=== PATIENT | female | born 1950 | race Caucasian/White ===

== ENCOUNTER → 2016-12-21 | Day surgery (SDC) | payer BC ==
--- NOTE | 2016-12-13 16:02 | MH ---
cc: RICK ANDERSON MD DATE OF ADMISSION 12/21/2016 REASON FOR ADMISSION Scheduled for admission on 12/21/1981 for cystocele repair. HISTORY OF THE PRESENT ILLNESS The patient is a 66-year-old white female 2, para 2, para 2 who had last year a total vaginal hysterectomy and extensive pelvic support procedure for uterovaginal prolapse. The repair included vaginal hysterectomy, vaginal vault suspension to uterosacral ligaments, anterior repair, modified posterior repair. She has done well with a good result but noted after some vigorous exercise a month or so ago recurrence of anterior compartment prolapse. Her exam in the office shows good support of the apex but does have stage II pelvic organ prolapse anteriorly. The patient declined pessary use or physical therapy and wanted to proceed to the vaginal repair. PAST MEDICAL HISTORY The patient's past medical history is negative for heart, lung, liver disease, hypertension, diabetes, stroke. PAST SURGICAL HISTORY 1. Hysteroscopy D&C. 2. Total vaginal hysterectomy with apical suspension, anterior and posterior repair. GYNECOLOGIC HISTORY No STDs or abnormal Pap smears. MEDICATIONS None ALLERGIES None SOCIAL HISTORY She does not smoke, use alcohol or drugs. . Has good social support. FAMILY HISTORY Noncontributory OBSTETRICAL HISTORY Two vaginal deliveries. Largest baby 10 pounds. REVIEW OF SYSTEMS As above. No chest pain, orthopnea, PND. No nausea, vomiting, fever, chills. No vaginal bleeding or discharge. Pelvic organ prolapse symptoms are mainly pelvic pressure and discomfort. No urinary incontinence. PHYSICAL EXAMINATION VITAL SIGNS: She is afebrile. Vital signs stable. Height is 5 feet 8, weight 140. BMI is 21.5. Blood pressure 120/70. GENERAL: Patient is alert and oriented in no acute stress. No sign of cognitive dysfunction or depression. HEENT: Within normal limits. NECK: Supple. No JVD. CHEST: Clear. HEART: Regular rate and rhythm. ABDOMEN: Soft and nontender. No hepatosplenomegaly. No CVA tenderness. PELVIC: Examination in the office shows pop Q score Aa is 0, point C is -6, Ap is -3, genital hiatus is 8. Perineal body is 5. Total vaginal length is 10. EXTREMITIES: Normal. SKIN: Without rashes. NEUROLOGIC: Nonfocal. No DVT signs. ASSESSMENT Patient with anterior compartment prolapse following prior stage IV pelvic organ prolapse repair. The patient and I discussed options for management and treatment. She is at increased risk for failure of repair secondary to her prior history of stage IV pelvic organ prolapse. She is also aware that the anterior compartment defects are more likely to result in failure and anterior enterocele. At this point we are going to use DVT prophylaxis with sequential compression device, Ancef for antibiotic prophylaxis. The patient wants to avoid the use of mesh and we will not be using any mesh from a transvaginal approach. She is aware of the risks, benefits and alternatives to the planned procedure including damage to surrounding organs, bleeding, infection, failure of repair, need for catheterization as well as issues regarding the De adan new onset stress incontinence as well as dyspareunia. Patient has made an informed choice to proceed. Anticipate outpatient procedure. Rick Anderson MD CS/KK /3:00 PM /3:50 PM
[~2016-12-21] VITALS: Ht 170.2 cm; Wt 66.5 kg
[~2016-12-21] MED LIST: DO NOT ADM ANY ANTICOAGULANT DRUGS XX PRN; ESTR42.5V VAGINAL; ESTROGENS CONJUGATED VAG CREA 15 APPL/30 GM TUBE ONE; FAMOTIDINE 20 MG/2 ML VIAL ONE; FLUORESCEIN SOD 10% SOLN 500 MG/5 ML AMP ONE; INSULIN HUMAN REGULAR 1,000 UNITS/10 ML VIAL SQ PRN; KETOROLAC TROMETHAMINE 10 MG TAB PO PRN; KETOROLAC TROMETHAMINE 30 MG/ML (IVP) VIAL IV PUSH PRN; KETOROLAC TROMETHAMINE 60 MG/2 ML (IM) VIAL IM ONE; KETOROLAC TROMETHAMINE 60 MG/2 ML (IM) VIAL IM PRN; LACTATED RINGER'S 1000 ML INJ 1,000 ML IV ONE; LACTATED RINGER'S 1000 ML IV SCH; LIDOCAINE 1%/EPINEPHrine 1:100,000 SOLN 30 ML VIAL ONE; META48.53 PO; METHYLENE BLUE 100 MG/10 ML VIAL OTHER ONE; METOPROLOL TARTRATE 25 MG TAB PO PRN; ONDANSETRON HCL 4 MG/2 ML VIAL IV PUSH ONE; ONDANSETRON HCL 4 MG/2 ML VIAL IV PUSH PRN; PROPOFOL 200 MG/20 ML AMP IV ONE; SODIUM CHLORID 0.9% 500 ML IV SCH; VITACAP7 PO; ceFAZolin 1,000 MG/NS 100 ML IV SCH; ePHEDrine/NS 25 MG/5 ML SYR IV ONE; fentaNYL CITRATE 250 MCG/5 ML AMP ONE
[2016-12-21 07:44] VITALS: BP 140/76; PULSE 67; RESP 20; TEMP 98.4; O2SAT 99
[2016-12-21 11:15] VITALS: BP 128/71; PULSE 69; RESP 18; TEMP 97.5; O2SAT 97
--- NOTE | 2016-12-22 11:33 | MP ---
cc: RICK ANDERSON MD DATE OF SURGERY 12/21/2016 PREOPERATIVE DIAGNOSIS Cystocele. POSTOPERATIVE DIAGNOSIS Cystocele with moderate apical descent. PROCEDURE 1. Cystocele/paravaginal repair. 1. Apical support with coccygeus muscle fascia. SURGEON MD Walter ANESTHESIA Laryngeal mask. BLOOD LOSS 30 cc. URINE OUTPUT 150 cc. DROP [employer]W [employer]ER [place] staff x 2. FLUIDS 1000 cc crystalloids. FINDINGS External genitalia: Normal. POP-Q score: Aa is +1, Ap is -1. Point C is -6. Total vaginal length is 10. Genital hiatus is 6. Perineal body is 4. FOLLOWING REPAIR Rectal exam was normal. Cystoscopy shows normal trigone, good coaptation of urethra. Ureteral orifices patent x 2. Dome and base of bladder are normal. POP-Q score: Aa is -3, Point C is -8. Remainder of findings are unchanged. SPECIMENS Vaginal mucosa trimmed but not sent. COMPLICATIONS None. DISPOSITION To Recovery stable. COUNTS Needle, instrument and sponge counts correct. DRAINS De León catheter. ANTIBIOTIC PROPHYLAXIS Ancef 1 gram IV. DVT PROPHYLAXIS Sequential compression device. TIME-OUT PROCEDURE Per protocol. SUMMARY OF INDICATIONS FOR PROCEDURE The patient with history of prior Stage IV uterovaginal prolapse. She had a vaginal suspension and hysterectomy last year, noted recurrence of anterior compartment defect with symptomatology and opted for repair. PROCEDURE The patient was taken to the operating theatre, identified, prepped and draped in a fashion appropriate for the planned procedure. She was in dorsal lithotomy position with careful attention paid to placement of legs in the stirrups to avoid undue stress to sensitive neurovascular structures. The above findings were noted, neurovascular integrity documented. A De León catheter was placed, methylene blue was instilled into the bladder. The most striking feature was the anterior compartment defect. The mucosa was infiltrated with epinephrine/lidocaine solution from the apex to approximately 1 cm distal from the urethral meatus. We then reflected the vaginal mucosa from the perivesicular fascia. There was no spill of methylene blue. We took the dissection up to the pubic rami and down to the ischial spines on each side, mobilized the bladder and then performed a modified a cystocele and paravaginal repair without difficulty. The vaginal mucosa was trimmed and the mucosa was closed with a running Vicryl suture. Apical support was added with delayed absorbable suture for added Level II support. The cystoscopy was performed using a 17-Serbian bridge and a 70-degree scope. The above findings were noted. Ureteral patency was documented. De León catheter was replaced, the suture line inspected, found to be intact. Rectal exam confirmed a normal exam. The procedure was concluded. The patient went to the recover room in stable condition. Should the patient have issues with recurrent prolapse, she may well be a candidate for a mesh procedure with laparoscopic approach. MD CINDY Patiño/SSB /10:28 AM /11:05 AM
== END | disposition home or self-care (01) ==
LOC: HSDC 06:50
PROVIDERS: ATTEND Obstetrics & Gynecology Gynecology
DX: N81.10 Cystocele, unspecified (principal); Z90.710 Acquired absence of both cervix and uterus
CPT/HCPCS: 00942; 57240; J0690; J1885; J2405; J3010; J7120